=== PATIENT | female | born 1950 | race Caucasian/White ===

== ENCOUNTER 2025-03-22 11:37 | Outpatient (CLI) | payer MEDICARE, OTHER, SELFPAY ==
[2025-03-24 00:13] LABS: Pancreatic Elastase, Fecal >800 (>200)
== END 2025-03-22 23:59 | disposition home or self-care (01) ==
LOC: LAB 11:39
PROVIDERS: PCP Internal Medicine; Visit Provider Internal Medicine Gastroenterology
DX: K52.9 Noninfective gastroenteritis and colitis, unspecified (principal); R14.0 Abdominal distension (gaseous)
CPT/HCPCS: 82656